=== PATIENT | male | born 1950 | race Caucasian/White ===

== ENCOUNTER 2024-09-22 16:13 | Emergency (ER) | payer OTHER, MEDICARE ==
[~2024-09-22] VITALS: Ht 190.5 cm; Wt 52.3 kg
--- NOTE | 2024-09-22 16:32 | Physician Documentation ---
History of Present Illness ~ Chief Complaint: 5150 Stated Complaint: 5150 Time Seen by MD: 16:31 HPI This is a 74-year-old male who was brought to the emergency department with a written 5150 hold per [employer]. Evidently, he has a at a [facility], has been noncompliant with medications, verbally abusive to staff, threatening to kill people. Medication Reconciliation Allergies: Coded Allergies: No Known Allergies (Unverified , 09/22/24) Past Medical History Past Medical History: Schizophrenia Past Surgical History: noncontributory Drug Use: marijuana Lives with: Family Lives In: Home Review of Systems ROS As stated above in the HPI, otherwise all systems are reviewed and negative. Physical Exam Vital Signs: Temperature: 97.8, Source: Temporal, Heart Rate: 95, Respiratory Rate: 16, BP: 144/79, Pulse Oximetry: 99, Weight: 52.270 Oxygen Flow Rate: 0 Physical Exam General: Alert, somewhat agitated, found to be repeatedly rocking on exam. Neck: Full range of motion. Respiratory: Lungs clear, no respiratory distress. Chest: No accessory muscle use. Cardiovascular: Regular rate and rhythm, no murmurs. Gastrointestinal: Soft, nontender, nondistended. Bowels sounds present. Extremities: Normal range of motion, no deformity. Neurologic: Alert, talkative, answers simple questions. Speech somewhat difficult to understand. Psychiatric: Guarded, poor eye contact. Skin: Normal color, warm and dry. No edema, no ecchymosis. Progress Results/Orders Results/Orders Orders - TOMER KAMARA NP BMP (09/22/24 16:56) Ethanol (09/22/24 16:56) TSH (09/22/24 16:56) Completed Orders - TOMER KAMARA NP Cbc/Diff (09/22/24 16:51) Vital Signs 09/22/24 09/22/24 16:18 17:25 Temp 97.8 Pulse 95 Resp 16 B/P (MAP) 144/79 Pulse Ox 99 O2 Flow Rate 0 Laboratory Tests Test 09/22/24 16:20 09/22/24 16:43 09/22/24 16:45 09/22/24 17:07 SARS-CoV-2 Antigen (Rapid) Negative CBC Comment Chemistry Comments Urine Specimen Description Non-specified Urine Color Yellow Urine Clarity Slightly cloudy Urine pH 5.5 Urine Specific [place] 1.025 Urine Protein 30 H Urine Glucose (UA) Negative Urine Ketones 15 H Urine Occult Blood Negative Urine Nitrite Negative Urine Bilirubin Small Urine Urobilinogen 0.2 Urine Leukocyte Esterase Negative Urine RBC 3-10 Urine WBC 0-4 Urine Squamous Epithelial Cells Moderate Urine Bacteria Few Urine Hyaline Casts 0-3 Urine Fine Granular Casts 0-3 Urine Mucus Many Volume Urine Centrifuged 8 ml Urine Comment Low volume Urine Opiates Screen Negative Urine Methadone Screen Negative Urine Fentanyl Screen Negative Urine Barbiturates Screen Negative Urine Phencyclidine Screen Negative Urine Amphetamines Screen Positive Urine Benzodiazepines Screen Negative Urine Cocaine Screen Negative Urine Cannabinoids Screen Positive Drug Screen Comment White Blood Count 6.3 Red Blood Count 5.30 Hemoglobin 15.2 Hematocrit 45.2 Mean Corpuscular Volume 85.3 Mean Corpuscular Hemoglobin 28.7 Mean Corpuscular Hemoglobin Concent 33.7 Red Cell Distribution Width 13.3 Platelet Count 304 Mean Platelet Volume 8.5 Neutrophils (%) (Auto) 66.7 Lymphocytes (%) (Auto) 24.4 Monocytes (%) (Auto) 8.1 Eosinophils (%) (Auto) 0.4 Basophils (%) (Auto) 0.4 Neutrophils # (Auto) 4.2 Lymphocytes # (Auto) 1.5 Monocytes # (Auto) 0.5 Eosinophils # (Auto) 0.0 Basophils # (Auto) 0.0 Medical Decision Making Differential Dx:Considerations: Include: Alcohol abuse, Anxiety, Bipolar disorder, Conversion disorder, Depression, Encephaloathy, Homicidal, Panic di sorder, Personality disorder, Schizophrenia, Substance abuse, Suicidal Differential Diagnosis 5150 hold. Meth positive per urine drug screen. Transfer orders for [facility]: At this time there is no evidence of an emergent medical condition that would preclude (admission/transfer) to a psychiatric unit via [facility] protocol for further psychiatric, as well as medical evaluation and treatment. At this time I have no reason to believe that transfer via [facility] protocol would have serious medical compromise in the patient's health. Departure Time of Disposition: 17:48 Disposition: 30 STILL A PATIENT Impression: Primary Impression: Psychosis Additional Impression: Methamphetamine abuse Referrals: NO PRIMARY CARE PROVIDER (PCP) Signature Scribe Signature: x Attestation: The note accurately reflects work and decisions made by me.Tomer Ramsey NP 09/22/24 17:42 TOMER KAMARA NP Sep 22, 2024 16:32
[2024-09-22 17:07] LABS: LEUKOCYTE ESTERASE ,URINE NEGATIVE (Neg); NITRITES, URINE NEGATIVE (Neg); OCCULT BLOOD,URINE NEGATIVE (Neg); URINE AMPHETAMINE SCREEN POSITIVE (Neg); URINE BARBITUATE SCREEN NEGATIVE (Neg); URINE BENZODIAZEPINES SCREEN NEGATIVE (Neg); URINE CANNABINOID SCREEN POSITIVE (Neg); URINE COCAINE SCREEN NEGATIVE (Neg); URINE METHADONE SCREEN NEGATIVE (Neg); URINE OPIATE SCREEN NEGATIVE (Neg); URINE PHENCYCLIDINE SCREEN NEGATIVE (Neg)
[2024-09-22 17:10] LABS: UA COLLECTION TYPE NON-SPECIFIED
[2024-09-22 17:16] LABS: FINE GRANULAR CAST 0-3 /LPF (NEGATIVE); HYALINE CASTS 0-3 /LPF (NEGATIVE); MUCUS STRANDS MANY /LPF (Neg); SQUAMOUS EPITHELIAL CELL,UR MODERATE /LPF (FEW)
[2024-09-22 17:33] LABS: MEAN PLATELET VOLUME 8.5 FL (7.4-10.4); RED CELL DISTRIBUTION WIDTH 13.3 % (11.5-14.5)
[2024-09-22 17:55] LABS: CREATININE 1.01 MG/DL (0.60-1.10); TOTAL CARBON DIOXIDE 30.4 MMOL/L (24-32); eCRCL 48 ML/MIN; eGFR 72 ML/MIN
[2024-09-22 17:58] LABS: ETHANOL < 10 MG/DL (<10)
[2024-09-22] MEDS: nicotine 21mg patch - 24 hr TD ONE (21:39)
[2024-09-23] MEDS ORDERED: RISP4TAB49 PO (07:37)
[2024-09-25 17:33] VITALS: TEMP 98.4
[2024-09-26] MEDS: nicotine 14mg patch - 24hr TD ONE (09:20)
[2024-09-26 17:06] VITALS: BP 143/77; PULSE 90; RESP 18; O2SAT 100
== END 2024-09-26 17:27 | disposition home or self-care (01) ==
LOC: ER 16:14
DX: F29 Unspecified psychosis not due to a substance or known physiological condition (principal); F15.10 Other stimulant abuse, uncomplicated; F20.9 Schizophrenia, unspecified; F12.90 Cannabis use, unspecified, uncomplicated; Z79.899 Other long term (current) drug therapy; Z20.822 Contact with and (suspected) exposure to COVID-19
CPT/HCPCS: 36415; 80048; 80305; 80320; 81001; 84443; 85025; 87811; 99285